=== PATIENT | female | born 1945 | race Caucasian/White ===

== ENCOUNTER → 2016-09-07 | Outpatient (CLI) | payer MEDICARE, OTHER ==
[~2016-09-07] VITALS: Ht 162.6 cm; Wt 84.0 kg
[~2016-09-07] MED LIST: ALPR0.2563 PO; CHOL3000 PO; CLOP75TA19 PO; CYAN1TAB46 SL; DULO60CA25 PO; GABA-215 PO; GABA-338 PO; HYDR-4246 PO; LEVO112C5 PO; METO50TA5 PO; OMEG100016 PO; REGADENOSON 0.4mg/5ml INJECTION IV ONE; SALINE FLUSH 10ml SYRINGE ONE; TRAM-277 PO
--- NOTE | 2016-09-07 14:32 | ESTF ---
PHARMACOLOGICAL STRESS NUCLEAR SCAN DATE 09/07/2016 INDICATION Chest pain. PROCEDURE The patient was injected with technetium-99m Myoview dose of 12.4 mCi. The patient was unable to exercise on treadmill due to neuropathy, using a cane. She was injected with Lexiscan for pharmacological stress, followed by technetium-99m Myoview dose of 30.9 mCi. Stress and rest perfusion images were obtained per protocol. Blood pressure 153/105 mmHg, went up to 173/94. Heart rate of 67 beats per minute, went up to 96 beats per minute, which is 64% of age-predicted maximum heart rate. Rest EKG shows sinus rhythm, possible prior inferior OK with a deep but relatively narrow Q wave. Poor R wave progression in precordial leads as well. Could not rule out prior anterior OK. During pharmacological stress, there was no ST depression or elevation diagnostic of ischemia, no arrhythmia. T-wave abnormality in lead III is present. Stress and rest perfusion images were reviewed. Relatively reduced uptake in the lateral wall is noted, of a mild to moderate severity. Appears to have redistribution on rest images suggestive of possible reversible ischemia. This area continues to the mid anterior wall which is also exhibits some redistribution. The uptake in the septum and inferior wall appears normal. Rotatogram shows moderate breast tissue attenuation artifact. Gated images show normal wall motion, normal contractility, LV ejection fraction of 70% on stress images, 77% on rest images. No regional wall motion abnormality. IMPRESSION Pharmacological stress nuclear scan, although clinically and electrically negative, scintigraphically shows possible reversible ischemia in the mid anterior and in the lateral wall of a mild to moderate severity. Normal LV ejection fraction. Will discuss results with the patient regarding further management, most likely with possible heart catheterization. MTDD
== END ==
LOC: IMA 08:19
PROVIDERS: ATTEND Internal Medicine Cardiovascular Disease
DX: R94.39 Abnormal result of other cardiovascular function study (principal); R07.9 Chest pain, unspecified
CPT/HCPCS: 78452; 93017; A9502; J2785